=== PATIENT | female | born 1990 | race American Indian/Alaskan Native ===

== ENCOUNTER 2016-12-02 01:20 | Inpatient (IN) | payer OTHER ==
[2016-12-02 02:09] LABS: RBC URINE 2 /hpf (0-3); URINE BILIRUBIN NEGATIVE (NEGATIVE); URINE BLOOD NEGATIVE (NEGATIVE); URINE COLOR Straw (YELLOW); URINE GLUCOSE (UA) NORMAL (Normal); URINE KETONE NEGATIVE (NEGATIVE); URINE LEUKOCYTE ESTERASE 1+ Leu/uL (Negative); URINE PROTEIN NEGATIVE (NEGATIVE); URINE UROBILINOGEN NORMAL mg/dL (0.2-1.0); WBC URINE 6 /hpf (0-5)
[2016-12-02 02:26] LABS: BASO % 0.9 % (0.0-2.0); EOS # 0.1 K/uL (0.0-0.7); EOS % 1.5 % (0.0-4.0); HEMATOCRIT 39.2 % (34.0-47.0); LYMPH # 2.1 K/uL (1.0-4.3); LYMPH % 45.3 % (20.0-40.0); MEAN CELL VOLUME 96.7 fL (81.0-99.0); MEAN CORPUSCULAR HEMOGLOBIN 33.4 pg (27.0-31.0); MEAN CORPUSCULAR HGB CONC 34.5 g/dL (33.0-37.0); MEAN PLATELET VOLUME 8.1 fL (7.2-11.7); MONO # 0.4 K/uL (0.0-0.8); MONO % 9.1 % (0.0-10.0); NRBC % 0.2 % (0.0-2.0); RED CELL DISTRIBUTION WIDTH 12.8 % (11.5-14.5); WHITE BLOOD COUNT 4.6 K/uL (4.8-10.8)
[2016-12-02 02:36] LABS: CHLORIDE 97 mmol/L (98-107); SODIUM 144 mmol/L (132-148)
[2016-12-02 02:37] LABS: POTASSIUM 4.1 mmol/L (3.6-5.2)
[2016-12-02 02:39] LABS: ALB/GLOB RATIO 1.2 (1.0-2.1); ALKALINE PHOSPHATASE 62 U/L (38-126); AST/SGOT 38 U/L (14-36); BILIRUBIN,TOTAL 0.2 mg/dL (0.2-1.3); BLOOD UREA NITROGEN 6 mg/dL (7-17); CARBON DIOXIDE 30 mmol/L (22-30); GFR AFRICAN-AMERICAN > 60; GLUCOSE,RANDOM 96 mg/dL (65-105); TOTAL PROTEIN 8.1 g/dL (6.3-8.3)
[2016-12-02 02:40] LABS: ALCOHOL SERUM 202 mg/dl (0-10); ALT/SGPT 37 U/L (9-52); CALCIUM 8.9 mg/dl (8.6-10.4)
--- NOTE | 2016-12-02 04:52 | C.PDOC ---
History Of Present Illness 26 year old patient presents to the ED complaining of a laceration to her left wrist. Patient states she had a few glasses of wine tonight. Then, she got into an argument on the phone which made her upset and depressed. She cut her wrist with a knife. She recently started to visit a psychiatrist who prescribed her Trazadone. Patient denies chest pain, fever, shortness of breath, numbness or weakness. Time Seen by Provider: 12/02/16 01:43 Chief Complaint (Nursing): Psychiatric Evaluation History Per: Patient History/Exam Limitations: intoxication Onset/Duration Of Symptoms: Mins (prior to arrival) Current Symptoms Are (Timing): Still Present Suicide/Self Injury Attempted (Context): Cut Wrists Modifying Factor(s): Alcohol Severity: Mild Pain Scale Rating Of: 3 Associated Symptoms: Anger, Depression Involuntary Hold By: None Recent travel outside of the [place]: No Past Medical History Reviewed: Historical Data, Nursing Documentation, Vital Signs Vital Signs: Last Vital Signs Temp 98 F 12/02/16 06:14 Pulse 98 H 12/02/16 06:14 Resp 20 12/02/16 06:14 BP 117/76 12/02/16 06:14 Pulse Ox 99 12/02/16 06:36 Family History: States: Unknown Family Hx - Social History Hx Alcohol Use: Yes Hx Substance Use: No - Immunization History Hx Tetanus Toxoid Vaccination: No Hx Influenza Vaccination: No Hx Pneumococcal Vaccination: No Review Of Systems Except As Marked, All Systems Reviewed And Found Negative. Constitutional: Negative for: Fever Cardiovascular: Negative for: Chest Pain Respiratory: Negative for: Shortness of Breath Skin: Positive for: Other (laceration) Neurological: Negative for: Weakness, Numbness Physical Exam - Physical Exam Appears: Non-toxic, No Acute Distress Skin: Warm, Dry, Other (5 cm abrasion to the anterior aspect of the left wrist, no active bleeding) Head: Atraumatic, Normacephalic Eye(s): bilateral: Normal Inspection, PERRL Neck: Normal ROM, Supple Chest: Symmetrical Cardiovascular: Rhythm Regular Respiratory: Normal Breath Sounds, No Rales, No Rhonchi, No Wheezing Gastrointestinal/Abdominal: Normal Exam, Soft, No Tenderness Extremity: Normal ROM Extremity: Bilateral: Atraumatic Neurological/Psych: Oriented x3, Normal Speech ED Course And Treatment - Laboratory Results Result Diagrams: 12/02/16 02:22 03/14/17 02:22 O2 Sat by Pulse Oximetry: 99 (RA) Pulse Ox Interpretation: Normal Progress Note: Labs done and reviewed. Wound cleaned with saline and dermabond applied. Steri-strips applied. PT IS MEDICALLY STABLE FOR PSYCHIATRIC EVALUATION AND ADMISSION. 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 Poison control contacted by JOSE Lane and advised EKG and cardiac care nurse. EKG done. Pt remains stable labs reviewed and wnl incl ASA and tylenol levels. Pt is admitted to psych under dr Morales service. Reevaluation Time: 06:38 Disposition - Disposition Referrals: Non [facility] Provider, [Primary Care Provider] - Disposition Time: 06:36 Condition: STABLE - Clinical Impression Clinical Impression: Alcohol abuse, Moderate major depression, single episode, Suicide attempt - PA / FIELD RESEARCH ASSOCIATE / Resident Statement MD/DO has reviewed & agrees with the documentation as recorded. - Scribe Statement The provider has reviewed the documentation as recorded by the Scribe Leidy Ovalle All medical record entries made by the Scribe were at my direction and personally dictated by me. I have reviewed the chart and agree that the record accurately reflects my personal performance of the history, physical exam, medical decision making, and the department course for this patient. I have also personally directed, reviewed, and agree with the discharge instructions and disposition.
[2016-12-02 08:08] VITALS: O2SAT 98
--- NOTE | 2016-12-02 08:24 | RAD ---
HISTORY: MEDICAL CLEARANCE COMPARISON: No prior. FINDINGS: LUNGS: No active pulmonary disease. PLEURA: No significant pleural effusion identified, no pneumothorax apparent. CARDIOVASCULAR: Normal. OSSEOUS STRUCTURES: No significant abnormalities. VISUALIZED UPPER ABDOMEN: Normal. OTHER FINDINGS: None. IMPRESSION: No active disease.
--- NOTE | 2016-12-02 11:20 | PCM.PSYCH ---
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 Patient was brought to the hospital because of depressed mood and suicidal attempt. Patient overdosed on a bottle of wine. Patient reports history of depression for more than 2 years. However she denies any inpatient psychiatric hospitalizations, but reports history of follow-up with a psychiatrist. As per the patient, her does not like her and is very mean to her. Yesterday they had a fight, patient became increasingly depressed and tried to overdose on a bottle of wine. He called the police and patient was escorted to the hospital. Patient appeared a bit delusional and paranoid. However she reports depressed mood, and feelings of hopelessness and helplessness. She reports poor sleep and poor appetite. However she denies any auditory or visual hallucinations or any persecutory delusions. She reports of drinking socially and denies any substance abuse. Past medical history None reported Past Psychiatric History - Past Psychiatric History Previous Treatment History: None Pertinent Medical Hx (Current Medical&Sleep Prob, Allergies): Allergies Allergy/AdvReac Type Severity Reaction Status Date / Time No Known Allergies Allergy Verified 12/02/16 07:36 No Known Home Med 12/02/16 Review of Systems - Review of Systems All systems: reviewed and no additional remarkable complaints except - Psychiatric Psychiatric: Anxiety, Depression, Hopelessness, Irritability, Paranoia, Suicidal Ideation. absent: Auditory Hallucinations, Visual Hallucinations Mental Status Examination - Personal Presentation Personal Presentation: Looks stated age - Affect Affect: Constricted, Depressed - Motor Activity Motor Activity: Calm - Reliability in Providing Information Reliability in Providing Information: Poor, due to alteration in thoughts, Poor , due to altered mood - Speech Speech: Disorganized - Mood Mood: Depressed, Anxious - Formal Thought Process Formal Thought Process: Delusions, Paranoia - Hallucinations/Delusions Delusions: Persecution - Obsessions/Compulsions Obsessions: No Compulsions: No - Cognitive Functions Orientation: Person, Place, Situation, Time Sensorium: Alert Attention/Concentration: Attentive Abstract Thinking: [place] Estimate of Intelligence: Below average Judgement: Imparied, as evidence by: Poor judgement, Imparied, as evidence by: Lack of insight into illness - Risk Risk: Suicidal, Diminished functioning - Strength & Assets Inventory Strength & Assets Inventory: Family support DSM 5 DX - DSM 5 DSM 5 Diagnosis: 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
--- NOTE | 2016-12-03 13:14 | PCM.PYCHPN ---
Psychiatric Progress Note - Psychiatric Progress Note Patient seen today, length of contact: 18 min Patient Chief Complaint: I am feeling a lot better today Problems Identified/Issues Discussed: Pt seen, chart reviewed, case discussed with team. Pt was seen today and reported to be in a much better mood. Today she denies suicidal ideation but remained isolated, withdrawn and confined to her room. She states that she feels stupid for even trying to hurt herself and does not know why she did. The pt is under a lot of stress from family disputes that have arisen in the last few days, but is aware of the fact that there are better wages to deal with these issues. the pt is interested in seeing a therapist and/or psychiatrist as outpt for continued treatment. She also states a desire to go home [facility] because she needs to take care of her children before her cousin leaves on thursday. pt denies anxiety, hallucinations, delusions, EtOH withdrawal symptoms at this time. Medication Change: Yes (increase Paxil) Medical Record Reviewed: Yes Mental Status Examination - Cognitive Function Orientation: Person, Place, Situation, Time Memory: Intact Attention: WNL Concentration: Poor Association: WNL Fund of Knowledge: Poor - Mood Mood: Depressed, Anxious - Affect Affect: Constricted, Depressed - Speech Speech: Appropriate - Formal Thought Process Formal Thought Process: No Impairment - Suicidal Ideation Suicidal Ideation: No - Homicidal Ideation Homicidal Ideation: No Goal/Treatment Plan - Goal/Treatment Plan Need for Continued Stay: Discharge may exacerbated symptoms, Severe functional impairment Progress Toward Problem(s) and Goals/Treatment Plan: 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
--- NOTE | 2016-12-04 10:20 | CARD ---
APPROVED REPORT EKG Measurement Heart [id number] CT [id number] <Conclusion> Normal sinus rhythm Possible Left atrial enlargement Nonspecific ST abnormality Abnormal ECG
--- NOTE | 2016-12-04 15:51 | PCM.PYCHPN ---
Psychiatric Progress Note - Psychiatric Progress Note Patient seen today, length of contact: 17 min Patient Chief Complaint: I am feeling better today Problems Identified/Issues Discussed: Pt seen, chart reviewed, case discussed with team. as per the staff patient remained confined to her room. She reports improvement in her mood but remained guarded. Reports improvement in her sleep and appetite and denies any suicidal ideation or homicidal ideation. Spoke with patient's , And he is comfortable with patient being discharged tomorrow. Medication Change: Yes (increase remeron) Medical Record Reviewed: Yes Mental Status Examination - Cognitive Function Orientation: Person, Place, Situation, Time Memory: Intact Attention: WNL Concentration: Poor Association: WNL Fund of Knowledge: Poor - Mood Mood: Depressed, Anxious - Affect Affect: Constricted, Depressed - Speech Speech: Appropriate - Formal Thought Process Formal Thought Process: No Impairment - Suicidal Ideation Suicidal Ideation: No - Homicidal Ideation Homicidal Ideation: No Goal/Treatment Plan - Goal/Treatment Plan Need for Continued Stay: Discharge may exacerbated symptoms, Severe functional impairment Progress Toward Problem(s) and Goals/Treatment Plan: 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
[2016-12-05 08:56] VITALS: BP 107/66; PULSE 73; RESP 18; TEMP 97.5
--- NOTE | 2016-12-05 10:05 | PCM.PYCHDC ---
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 Patient was brought to the hospital because of depressed mood and suicidal attempt. Patient overdosed on a bottle of wine. Patient reports history of depression for more than 2 years. However she denies any inpatient psychiatric hospitalizations, but reports history of follow-up with a psychiatrist. As per the patient, her does not like her and is very mean to her. Yesterday they had a fight, patient became increasingly depressed and tried to overdose on a bottle of wine. He called the police and patient was escorted to the hospital. Patient appeared a bit delusional and paranoid. However she reports depressed mood, and feelings of hopelessness and helplessness. She reports poor sleep and poor appetite. However she denies any auditory or visual hallucinations or any persecutory delusions. She reports of drinking socially and denies any substance abuse. Past medical history None reported Consultations:: List each consultation separately and include: 1. Reason for request. 2. Findings. 3. Follow-up Summary of Hospital Course include:: 1. Description of specific treatment plan utilized for patients during their course of treatmen. 2. Summarize the time- course for resolution of acute symptoms and/or regressed behaviors. 3. Describe issues identified and worked on during hospitalization. 4. Describe medication utilized. 5. Describe medical problems identified and treated. 6. Reassessment of suicide risk Summary of Hospital Course: During the course of her stay, patient (pt) started progressively improving and she no longer remained anxious, depressed and suicidal. Her mood was getting better and she started attending groups and meetings and started socializing. The doses of her medications were maximized and patient denied any feelings of hopelessness, helplessness, and worthlessness, denied any problem with the sleep or appetite, denied suicidal ideation or homicidal ideation. Pt denied any auditory or visual hallucinations. Patient reported improvement in her mood and tolerated these medications very well and denied any side effects. 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 Pt was educated and counseled about the risks of drinking and abusing drugs. Pt was educated and counseled to go to the ER or call 911 if pt develop suicidal ideation or homicidal ideation, worsening of symptoms or severe side effects of the meds. Prescriptions/Medication Reconciliation: Benztropine [Cogentin] 1 mg PO HS PRN #30 tab PRN Reason: Allergy Symptoms traZODone [Desyrel] 100 mg PO HS #30 tab PARoxetine [Paxil] 20 mg PO QAM #30 tab Mirtazapine [Remeron] 30 mg PO HS #30 tab risperiDONE [RisperDAL Tab] 0.5 mg PO HS #30 tab - Smoking Cessation Smoking Cessation Medication prescribed: No - Antipsychotic Medications Pt discharged on 2 or more routine antipsychotic medications: No
== END 2016-12-05 11:40 | disposition home or self-care (01) | DRG 430 ==
LOC: SUPCPDRO 01:20 → C.ER 01:20 → C.5E 06:32
PROVIDERS: ADMIT Psychiatry & Neurology Psychiatry; ATTEND Psychiatry & Neurology Psychiatry
PROC: GZ58ZZZ Individual Psychotherapy, Cognitive-Behavioral (ICD-10-PCS; principal; 2016-12-02)
PROC: GZ56ZZZ Individual Psychotherapy, Supportive (ICD-10-PCS; 2016-12-02)
PROC: HZ52ZZZ Individual Psychotherapy for Substance Abuse Treatment, Cognitive-Behavioral (ICD-10-PCS; 2016-12-02)
PROC: HZ59ZZZ Individual Psychotherapy for Substance Abuse Treatment, Supportive (ICD-10-PCS; 2016-12-02)
PROC: HZ56ZZZ Individual Psychotherapy for Substance Abuse Treatment, Psychoeducation (ICD-10-PCS; 2016-12-02)
DX: F32.3 Major depressive disorder, single episode, severe with psychotic features (principal); F10.10 Alcohol abuse, uncomplicated; T51.0X2A Toxic effect of ethanol, intentional self-harm, initial encounter; S61.512A Laceration without foreign body of left wrist, initial encounter; X78.1XXA Intentional self-harm by knife, initial encounter

== ENCOUNTER 2017-08-03 00:55 | Emergency (ER) | payer BC ==
[2017-08-03 01:41] VITALS: TEMP 98.1
--- NOTE | 2017-08-03 02:45 | C.PDOC ---
History Of Present Illness 27 year old female presents to the ER with a complaint of cough and congestion for the past 2 weeks. Patient states she has pain to her chest and back when coughs which concerned her and prompted ER visit. Patient reports she recently traveled to [facility] one month ago. Denies sick contact, fever, or chills. Time Seen by Provider: 08/03/17 01:16 Chief Complaint (Nursing): Cough, Cold, Congestion History Per: Patient History/Exam Limitations: no limitations Onset/Duration Of Symptoms: Days Current Symptoms Are (Timing): Still Present Location Of Pain: Other (Back/Chest) Sick Contacts (Context): None Associated Symptoms: Cough, Nasal Congestion. denies: Fever, Chills Ear Symptoms: Bilateral: None Recent travel outside of the [place]: No Past Medical History Reviewed: Historical Data, Nursing Documentation, Vital Signs Vital Signs: Last Vital Signs Temp 98.1 F 08/03/17 01:08 Pulse 110 H 08/03/17 01:08 Resp 18 08/03/17 01:08 BP 121/78 08/03/17 01:08 Pulse Ox 98 08/03/17 01:08 - Medical History PMH: Depression (PT STATES "NOT ANY LONGER") Surgical History: No Surg Hx - [facility] Procedures INDIV PSYCHOTHERAPY FOR SUBSTANCE ABUSE TREATMENT, SUPPORT (12/02/16) INDIV PSYCHOTHERAPY FOR SUBSTANCE ABUSE, COGNITIV BEHAVIORAL (12/02/16) INDIV PSYCHOTHERAPY FOR SUBSTANCE ABUSE, PSYCHOEDUCATION (12/02/16) INDIVIDUAL PSYCHOTHERAPY, COGNITIVE-BEHAVIORAL (12/02/16) INDIVIDUAL PSYCHOTHERAPY, SUPPORTIVE (12/02/16) Family History: States: Unknown Family Hx - Social History Hx Alcohol Use: Yes Hx Substance Use: Yes - Immunization History Hx Tetanus Toxoid Vaccination: No Hx Influenza Vaccination: No Hx Pneumococcal Vaccination: No Review Of Systems Constitutional: Negative for: Fever, Chills ENT: Positive for: Nose Congestion Respiratory: Positive for: Cough. Negative for: Sputum Physical Exam - Physical Exam Appears: Non-toxic, No Acute Distress Skin: Normal Color, Warm, Dry Head: Atraumatic, Normacephalic Eye(s): bilateral: Normal Inspection, EOMI Oral Mucosa: Moist Throat: Normal, No Erythema, No Exudate Neck: Normal, Supple Chest: Symmetrical, No Tenderness Cardiovascular: Rhythm Regular Respiratory: Normal Breath Sounds, No Rales, No Rhonchi, No Wheezing Gastrointestinal/Abdominal: Soft, No Tenderness Back: No CVA Tenderness, No Vertebral Tenderness, No Paraspinal Tenderness Neurological/Psych: Oriented x3, Normal Speech, Normal Cognition ED Course And Treatment O2 Sat by Pulse Oximetry: 98 (Room air) Pulse Ox Interpretation: Normal - Radiology CXR: Interpreted by Me, Viewed By Me CXR Interpretation: Yes: No Acute Disease. No: Infiltrates Progress Note: CXR and POC ordered. CXR was negative, patient remains stable in the ER and in no acute distress; will discharge with Rx and instructions to follow up with PMD in 1-2 days. Return precautions also given. Disposition - Disposition - Scribe Statement The provider has reviewed the documentation as recorded by the Scribe Lew Deal All medical record entries made by the Scribe were at my direction and personally dictated by me. I have reviewed the chart and agree that the record accurately reflects my personal performance of the history, physical exam, medical decision making, and the department course for this patient. I have also personally directed, reviewed, and agree with the discharge instructions and disposition.
[2017-08-03 02:48] VITALS: BP 117/82; PULSE 94; RESP 16; O2SAT 100
--- NOTE | 2017-08-03 02:51 | C.PDOC ---
History Of Present Illness 27 year old female presents to the ER with a complaint of cough and congestion for the past 2 weeks. Patient states she has pain to her chest and back when coughs which concerned her and prompted ER visit. Patient reports she recently traveled to [facility] one month ago. Denies SOB, sick contact, fever, or chills. Time Seen by Provider: 08/03/17 01:16 Chief Complaint (Nursing): Cough, Cold, Congestion History Per: Patient History/Exam Limitations: no limitations Onset/Duration Of Symptoms: Days Current Symptoms Are (Timing): Still Present Location Of Pain: Other (Back/Chest) Sick Contacts (Context): None Associated Symptoms: Cough, Nasal Congestion. denies: Fever, Chills Ear Symptoms: Bilateral: None Recent travel outside of the [place]: Yes Past Medical History Reviewed: Historical Data, Nursing Documentation, Vital Signs Vital Signs: Last Vital Signs Temp 98.1 F 08/03/17 01:08 Pulse 94 H 08/03/17 02:47 Resp 16 08/03/17 02:47 BP 117/82 08/03/17 02:47 Pulse Ox 100 08/03/17 02:51 - Medical History PMH: Depression (PT STATES "NOT ANY LONGER") Surgical History: No Surg Hx - [facility] Procedures INDIV PSYCHOTHERAPY FOR SUBSTANCE ABUSE TREATMENT, SUPPORT (12/02/16) INDIV PSYCHOTHERAPY FOR SUBSTANCE ABUSE, COGNITIV BEHAVIORAL (12/02/16) INDIV PSYCHOTHERAPY FOR SUBSTANCE ABUSE, PSYCHOEDUCATION (12/02/16) INDIVIDUAL PSYCHOTHERAPY, COGNITIVE-BEHAVIORAL (12/02/16) INDIVIDUAL PSYCHOTHERAPY, SUPPORTIVE (12/02/16) Family History: States: Unknown Family Hx - Social History Hx Alcohol Use: Yes Hx Substance Use: Yes - Immunization History Hx Tetanus Toxoid Vaccination: No Hx Influenza Vaccination: No Hx Pneumococcal Vaccination: No Review Of Systems Constitutional: Negative for: Fever, Chills ENT: Positive for: Nose Congestion Respiratory: Positive for: Cough Musculoskeletal: Positive for: Back Pain, Other (Chest wall pain) Physical Exam - Physical Exam Appears: Non-toxic, No Acute Distress Skin: Normal Color, Warm, Dry Head: Atraumatic, Normacephalic Eye(s): bilateral: Normal Inspection, EOMI Ear(s): Bilateral: Normal Nose: Normal Oral Mucosa: Moist Throat: Normal, No Erythema, No Exudate Neck: Normal, Supple Chest: Symmetrical, No Tenderness Cardiovascular: Rhythm Regular Respiratory: Normal Breath Sounds, No Rhonchi, No Wheezing Neurological/Psych: Oriented x3, Normal Speech, Normal Cognition ED Course And Treatment O2 Sat by Pulse Oximetry: 100 (Room air) Pulse Ox Interpretation: Normal - Radiology CXR: Interpreted by Me, Viewed By Me CXR Interpretation: Yes: No Acute Disease. No: Infiltrates Progress Note: CXR and POC ordered. CXR was negative, patient remains stable in the ER and is in no acute distress; will discharge with Rx and instructions to follow up with PMD in 1-2 days. Return precautions also given. Disposition - Disposition Referrals: [facility] [Outside] [facility] [Outside] Disposition: HOME/ ROUTINE Disposition Time: 02:53 Condition: STABLE Additional Instructions: Increase fluids Take meds as prescribed Return to ER if worse Prescriptions: Azithromycin [Zithromax] 250 mg PO DAILY #6 tab Benzonatate [Tessalon Perles] 100 mg PO TID #20 sgl Cetirizine HCl [Zyrtec] 10 mg PO DAILY #20 capsule Instructions: Acute Bronchitis (ED) Forms: [employer] (Spanish) - Clinical Impression Clinical Impression: Bronchitis - Scribe Statement The provider has reviewed the documentation as recorded by the Scribe Lew Deal All medical record entries made by the Scribe were at my direction and personally dictated by me. I have reviewed the chart and agree that the record accurately reflects my personal performance of the history, physical exam, medical decision making, and the department course for this patient. I have also personally directed, reviewed, and agree with the discharge instructions and disposition.
--- NOTE | 2017-08-03 10:43 | RAD ---
HISTORY: cough, cp COMPARISON: Chest x-ray performed 12/02/16 TECHNIQUE: Chest PA and lateral FINDINGS: Hypoinflation. LUNGS: Patchy opacity at the left lung base suspected to reflect infiltrate. PLEURA: No significant pleural effusion identified. No definite pneumothorax. CARDIOVASCULAR: The cardiomediastinal silhouette appears within normal limits of size. OSSEOUS STRUCTURES: No acute osseous abnormality identified. VISUALIZED UPPER ABDOMEN: Unremarkable. OTHER FINDINGS: None. IMPRESSION: Patchy opacity at the left lung base suspected to reflect infiltrate. Study has been marked for PA review.
== END 2017-08-03 03:07 | disposition home or self-care (01) ==
LOC: C.ER 00:55
DX: J40 Bronchitis, not specified as acute or chronic (principal); F17.210 Nicotine dependence, cigarettes, uncomplicated